=== PATIENT | male | born 1965 | race Caucasian/White ===

== ENCOUNTER 2017-10-26 14:09 | Inpatient (IN) | payer OTHER ==
[~2017-10-26] VITALS: Ht 172.7 cm; Wt 85.5 kg
[~2017-10-26 14:09] MED LIST: B/P MED; BACTRIM DS 8001 TA1 PO; KEFLEX500 M1 PO; Motrin,Rufen800 MG PO; NAPROSYN500 MG PO; VICODIN ES 7501 TAB PO
[2017-10-26 14:10] VITALS: BP 207/144
[2017-10-26 14:45] LABS: BASO % 0.3 % (0.0-1.0); EOS # 0.1 10*3/uL (0.0-0.4); EOS % 0.9 % (1.0-4.0); HEMATOCRIT 45.8 % (42.0-52.0); HEMOGLOBIN 15.7 g/dl (14.0-18.0); LYMPH # 2.1 10*3/uL (1.3-4.4); MEAN CELL VOLUME 84.8 fl (80.0-94.0); MEAN CORPUSCULAR HGB 29.1 pg (27.0-31.0); MEAN CORPUSCULAR HGB CONC 34.3 g/dl (33.0-37.0); MEAN PLATELET VOLUME 9.6 fl (9.6-12.3); MONO # 0.7 10*3/uL (0.1-1.0); MONO % 6.6 % (3.0-9.0); NEUT # 7.1 10*3/uL (2.3-7.9); NEUT % 70.6 % (47.0-73.0); PLATELET COUNT AUTOMATED 222 10*3/uL (130-400); RED CELL DISTRI WIDTH 14.1 % (0-14.5); WHITE BLOOD COUNT 10.1 10*3/uL (4.8-10.8)
[2017-10-26 14:52] LABS: ACT PARTIAL THROMBO TIME 23.8 SECONDS (20.8-31.5)
[2017-10-26 15:03] LABS: ALKALINE PHOSPHATASE 57 U/L (45-117); BUN 12 mg/dl (7-24); CHLORIDE 107 mmol/L (98-107); CREATININE 0.96 mg/dL (0.70-1.30); POTASSIUM 3.9 mmol/L (3.5-5.1); SGOT/AST 15 IU/L (3-35); SGPT/ALT 42 U/L (12-78); SODIUM 139 mmol/L (136-145); TOTAL PROTEIN 7.7 gm/dL (6.4-8.2); TROPONIN I < 0.015 ng/ml (<0.045)
[2017-10-26 15:35] VITALS: BP 170/143
--- NOTE | 2017-10-26 15:35 | NUR ---
RESTING IN BED. TELLS ME PAIN IS STILL THE SAME.
[2017-10-26 15:55] VITALS: BP 160/120
[2017-10-26 16:00] VITALS: BP 162/98
--- NOTE | 2017-10-26 16:09 | NUR ---
UNABLE TO TRANSPORT PT AT THIS TIME, DR RUTH IN ROOM INTERVIEWING PT.
[2017-10-26 16:30] VITALS: BP 162/98
--- NOTE | 2017-10-26 18:41 | NUR ---
FLU VACCINE WAS ORDERED. HAS NOT COME UP FROM PHARMACY YET, SO IT WAS NOT GIVEN. WILL PASS ALONG TO NEXT SHIFT.
--- NOTE | 2017-10-26 18:50 | NUR ---
PHARMACY BROUGHT FLU VACCINES UP AND IT WAS GIVEN.
[2017-10-26 20:00] VITALS: BP 140/82
--- NOTE | 2017-10-26 21:43 | NUR ---
MEDICATED WITH NORCO FOR COMPLAINTS OF A HEADACHE. WILL CONTINUE TO MONITOR. CALL LIGHT IN REACH.
--- NOTE | 2017-10-26 22:31 | NUR ---
NORCO SOMEWHAT EFFECTIVE AT THIS TIME. PATIENT SAYS HE STILL HAS A HEADACHE BUT IT IS A LITTLE BETTER THAN IT WAS. WILL CONTINUE TO MONITOR. CALL LIGHT IN REACH.
[2017-10-27] VITALS: BP 121/74
[2017-10-27 06:31] LABS: BASO % 0.3 % (0.0-1.0); EOS # 0.2 10*3/uL (0.0-0.4); HEMATOCRIT 44.5 % (42.0-52.0); LYMPH # 2.3 10*3/uL (1.3-4.4); LYMPH % 21.9 % (27.0-41.0); MEAN CELL VOLUME 86.1 fl (80.0-94.0); MEAN CORPUSCULAR HGB CONC 33.7 g/dl (33.0-37.0); MEAN PLATELET VOLUME 9.8 fl (9.6-12.3); MONO # 0.9 10*3/uL (0.1-1.0); MONO % 8.2 % (3.0-9.0); NEUT % 66.7 % (47.0-73.0); PLATELET COUNT AUTOMATED 205 10*3/uL (130-400); RED BLOOD COUNT 5.17 10*6/uL (4.50-5.90); RED CELL DISTRI WIDTH 14.4 % (0-14.5); WHITE BLOOD COUNT 10.5 10*3/uL (4.8-10.8)
[2017-10-27 06:42] LABS: BUN 16 mg/dl (7-24); CHLORIDE 108 mmol/L (98-107); CHOLESTEROL 122 mg/dL (<200); CREATININE 0.94 mg/dL (0.70-1.30); HDL CHOLESTEROL 42 mg/dl (40-60); LDL CHOLESTEROL 63 mg/dL (9-159); POTASSIUM 4.2 mmol/L (3.5-5.1); SODIUM 143 mmol/L (136-145); TRIGLYCERIDES 83 mg/dl (<150); VLDL CHOLESTEROL 17 mg/dL (6-40)
--- NOTE | 2017-10-27 07:30 | NUR ---
PATIENT RESTING IN BED. PATIENT NPO FOR A CARIOLITE STRESS TEST. PATIENT DENIES ANY PAIN OR DISCOMFORT UPON ASSESSMENT. PATIENT A&OX3 AND AMBULATORY W/O ASSIST. PATIENT DENIES SOB OR DIZZINESS UPON EXERTION. NO FURTHER REQUESTS UPON THE TIME. PATIENT MONITORED, HOB ELEVATED. CALL LIGHT WITHIN REACH. SEE ASSESSMENT.
[2017-10-27 08:00] VITALS: BP 154/110
--- NOTE | 2017-10-27 08:45 | NUR ---
PATIENT OFF THE FLOOR VIA WHEELCHAIR FOR STRESS TEST.
--- NOTE | 2017-10-27 11:00 | NUR ---
INFORMED CONSENT OBTAINED FOR EXERCISE CARDIOLITE STRESS TEST WITH DR. CROSS. DR. CROSS SWITCHED FROM LEXISCAN TO EXERCISE. RESTING EKG NSR WITH A RESTING HR OF 64 WITH BP OF 162/118 AND HR OF 69 WITH BP OF 168/120. PT COMPLETED 7:24 OF A MERYL PROTOCOL AND SWITCHED TO WALKING LEXISCAN BECAUSE OF EXERCISE BP OF 232/110. SPEED DECREASED TO 1.5 MPH AND GRADE REMOVED. COMPLETED A 1:00 LEXISCAN PROTOCOL RECEIVING LEXISCAN 0.4 MG IV OVER 10 SECONDS. AFTER 1:00 OF INJECTION WALKED AN ADDITIONAL MINUTE. REACHED A PEAK HR OF 133 WITH MAX BP OF 232/110. HAD NO CHEST PAIN OR ANY EKG CHANGES. HAS A HYPERTENSIVE RESPONSE TO EXERCISE. LAST RECOVERY HR OF 108 WITH BP OF 172/110. AWAITING SCANNING IN STABLE CONDITION.
[2017-10-27 12:00] VITALS: BP 170/116
--- NOTE | 2017-10-27 14:15 | NUR ---
Cleaner Assistant in to talk to patient. Patient states lives at home with his fiance. There are [address] steps in the home. Physician: no family physician Pharmacy: [facility] Home health services: none Patient's level of ADLs: INDEPENDENT Patient has working utilities: yes DME: none Follow-up physician's appointment after d/c: will be made by hospitalist nurse director upon discharge Does patient want to access PORTAL?: no Discharge plan discussed with patient. He lives at home with his fiance. He works and is independent in his ADLs and ambulation. When medically stable he will be discharged to home. DARCIE BALLESTEROS
--- NOTE | 2017-10-27 15:10 | NUR ---
PATIENT LEFT THE FLOOR AMA. FORM SIGNED, PATIENT AWARE OF CONSEQUENCES AND POTENTIAL CONCERNS. NOTIFIED OF INCIDENT. AMA INCIDENT FORM COMPLETED, MONITORED AND IV SITE REMOVED.
== END 2017-10-27 15:15 | disposition left against medical advice (07) | DRG 313 ==
LOC: ED 14:09 → EDHOLD 15:37 → 5E 15:37
PROVIDERS: Emergency Medicine; Student in an Organized Health Care Education/Training Program; ADMIT Emergency Medicine
PROC: 4A02XM4 Measurement of Cardiac Total Activity, External Approach (ICD-10-PCS; principal; 2017-10-27)
PROC: 3E073KZ Introduction of Other Diagnostic Substance into Coronary Artery, Percutaneous Approach (ICD-10-PCS; 2017-10-27)
DX: R07.89 Other chest pain (principal); E66.3 Overweight; I16.1 Hypertensive emergency; F41.9 Anxiety disorder, unspecified; I10 Essential (primary) hypertension; Z68.28 Body mass index [BMI] 28.0-28.9, adult; Z82.49 Family history of ischemic heart disease and other diseases of the circulatory system; Z81.1 Family history of alcohol abuse and dependence; Z71.6 Tobacco abuse counseling; Z72.0 Tobacco use; Z79.899 Other long term (current) drug therapy

== ENCOUNTER 2019-02-14 15:56 | Emergency (ER) | payer SELFPAY ==
[~2019-02-14] VITALS: Ht 175.2 cm; Wt 81.6 kg
[2019-02-14 16:49] LABS: BASO % 0.2 % (0.0-1.0); EOS # 0.1 10*3/uL (0.0-0.4); EOS % 0.7 % (1.0-4.0); HEMATOCRIT 47.6 % (42.0-52.0); HEMOGLOBIN 16.2 g/dl (14.0-18.0); LYMPH # 2.2 10*3/uL (1.3-4.4); LYMPH % 14.5 % (27.0-41.0); MEAN CELL VOLUME 87.7 fl (80.0-94.0); MEAN CORPUSCULAR HGB 29.8 pg (27.0-31.0); MEAN PLATELET VOLUME 9.4 fl (9.6-12.3); MONO # 1.2 10*3/uL (0.1-1.0); MONO % 7.6 % (3.0-9.0); NEUT # 11.7 10*3/uL (2.3-7.9); NEUT % 76.5 % (47.0-73.0); PLATELET COUNT AUTOMATED 224 10*3/uL (130-400); RED BLOOD COUNT 5.43 10*6/uL (4.50-5.90); WHITE BLOOD COUNT 15.3 10*3/uL (4.8-10.8)
[2019-02-14 17:05] LABS: BILIRUBIN NEGATIVE (NEGATIVE); BLOOD NEGATIVE (NEGATIVE); CLARITY SL CLOUDY (CLEAR); COLOR YELLOW (YELLOW); GLUCOSE NEGATIVE (NEGATIVE); KETONE NEGATIVE (NEGATIVE); LEUKO ESTERASE NEGATIVE (NEGATIVE); NITRITE NEGATIVE (NEGATIVE); PH 5.5 (5.0-9.0); SPECIFIC GRAVITY >= 1.030 (1.005-1.030); UROBILINOGEN 0.2 E.U./dl (0.2-1.0)
[2019-02-14 17:15] LABS: BACTERIA TRACE; EPITHELIAL CELLS 0-2; RBC 0-2 rbc/hpf (0-2); WBC 0-2 wbc/hpf (0-5)
[2019-02-14 17:16] LABS: MUCOUS 1+
[2019-02-14 17:21] LABS: ALBUMIN 3.7 gm/dl (3.1-4.5); ALKALINE PHOSPHATASE 59 U/L (45-117); BUN 16 mg/dl (7-24); CHLORIDE 110 mmol/L (98-107); CREATININE 0.98 mg/dL (0.70-1.30); LIPASE 146 U/L (73-393); POTASSIUM 3.8 mmol/L (3.5-5.1); SGOT/AST 21 IU/L (3-35); SGPT/ALT 48 U/L (12-78); SODIUM 140 mmol/L (136-145); TOTAL PROTEIN 7.8 gm/dL (6.4-8.2)
[2019-02-14] MEDS ORDERED: PERCOCET 5-3251 EACH PO (18:09)
[2019-02-14] MEDS ORDERED: CIPRO500 MG PO (18:09)
[2019-02-14] MEDS ORDERED: FLAGYL500 MG PO (18:09)
== END 2019-02-14 18:45 | disposition home or self-care (01) ==
LOC: ED 15:56
PROVIDERS: Physician Assistant
DX: K57.32 Diverticulitis of large intestine without perforation or abscess without bleeding (principal); F17.200 Nicotine dependence, unspecified, uncomplicated; Z87.442 Personal history of urinary calculi

== ENCOUNTER 2020-10-21 21:13 | Emergency (ER) | payer SELFPAY ==
[~2020-10-21] VITALS: Ht 182.8 cm; Wt 99.8 kg
[~2020-10-21 21:13] MED LIST changes: +CIPRO500 MG PO; +FLAGYL500 MG PO; +PERCOCET 5-3251 EACH PO
[2020-10-21 21:51] LABS: BILIRUBIN Negative (Negative); BLOOD 2+ (Negative); CLARITY Clear (Clear); COLOR Yellow (Yellow); GLUCOSE 3+ (Negative); KETONE Negative (Negative); LEUKO ESTERASE Negative (Negative); NITRITE Negative (Negative); SPECIFIC GRAVITY 1.015 (1.001-1.030); UROBILINOGEN 0.2 E.U./dl (0.0-1.0)
[2020-10-21 22:00] LABS: EPITHELIAL CELLS 0-2; RBC 41-50 rbc/hpf (0-2); WBC 0-2 wbc/hpf (0-5)
[2020-10-21 22:44] LABS: HEMATOCRIT 44.1 % (42.0-52.0); MEAN CORPUSCULAR HGB CONC 33.3 g/dl (33.0-37.0); MEAN PLATELET VOLUME 9.9 fl (9.6-12.3); PLATELET COUNT AUTOMATED 176 10*3/uL (130-400); RED BLOOD COUNT 5.07 10*6/uL (4.50-5.90); RED CELL DISTRI WIDTH 14.1 % (0-14.5); WHITE BLOOD COUNT 24.1 10*3/uL (4.8-10.8)
[2020-10-21 23:02] LABS: ALBUMIN 3.5 gm/dl (3.1-4.5); ALKALINE PHOSPHATASE 60 U/L (45-117); BUN 22 mg/dl (7-24); CHLORIDE 107 mmol/L (98-107); CREATININE 1.43 mg/dL (0.70-1.30); POTASSIUM 3.3 mmol/L (3.5-5.1); SGOT/AST 41 IU/L (3-35); SGPT/ALT 57 U/L (12-78); SODIUM 141 mmol/L (136-145); TOTAL PROTEIN 7.1 gm/dL (6.4-8.2)
[2020-10-21 23:03] LABS: PLATELET SUFFICIENCY NORMAL (NORMAL); TOTAL CELLS COUNTED 100 #CELLS
== END 2020-10-21 23:30 | disposition short-term general hospital (02) ==
LOC: ED 21:13
PROVIDERS: Emergency Medicine
DX: I61.5 Nontraumatic intracerebral hemorrhage, intraventricular (principal); R56.9 Unspecified convulsions; R42 Dizziness and giddiness; R55 Syncope and collapse; I10 Essential (primary) hypertension; Z79.899 Other long term (current) drug therapy; Z79.2 Long term (current) use of antibiotics